=== PATIENT | female | born 1945 | race Caucasian/White ===

== ENCOUNTER 2022-05-13 09:38 | Outpatient (CLI) | payer MEDICARE, OTHER | END 2022-05-13 09:39 | disposition home or self-care (01) | LOC: CSHMAMMO 09:38 | PROVIDERS: ATTEND Family Medicine | DX: Z12.31 Encounter for screening mammogram for malignant neoplasm of breast (principal); R92.0 Mammographic microcalcification found on diagnostic imaging of breast; Z80.3 Family history of malignant neoplasm of breast | CPT/HCPCS: 77063; 77067 ==

== ENCOUNTER 2022-05-18 08:44 | Outpatient (CLI) | payer MEDICARE, OTHER | END 2022-05-18 08:45 | disposition home or self-care (01) | LOC: CSHMAMMO 08:44 | PROVIDERS: ATTEND Family Medicine | DX: R92.1 Mammographic calcification found on diagnostic imaging of breast (principal) | CPT/HCPCS: 76642; 77065; G0279 ==

== ENCOUNTER 2023-05-16 11:59 | Outpatient (CLI) | payer MEDICARE, OTHER | END 2023-05-16 12:00 | disposition home or self-care (01) | LOC: CSHMAMMO 11:59 | PROVIDERS: ATTEND Family Medicine | DX: Z08 Encounter for follow-up examination after completed treatment for malignant neoplasm (principal); Z85.3 Personal history of malignant neoplasm of breast | CPT/HCPCS: 77065; G0279 ==

== ENCOUNTER 2024-07-20 13:17 | Outpatient (CLI) | payer MEDICARE, OTHER | END 2024-07-20 13:18 | disposition home or self-care (01) | LOC: CSHMAMMO 13:17 | PROVIDERS: ATTEND Family Medicine | DX: Z08 Encounter for follow-up examination after completed treatment for malignant neoplasm (principal); Z85.3 Personal history of malignant neoplasm of breast | CPT/HCPCS: 77065; G0279 ==